=== PATIENT | female | born 1940 | race Caucasian/White ===

== ENCOUNTER 2022-01-17 06:22 | Inpatient (IN) ==
[2022-01-17] MEDS ORDERED: 0.9 % SODIUM CHLORIDE 1,000 ML IV ONE ×2 (06:35→08:00)
[2022-01-17 06:39] LABS: POC Calcium, Ionized 1.17 (1.16-1.32); POC Creatinine 0.8 (0.6-1.2); POC Potassium 3.6 (3.3-5.1)
--- NOTE | 2022-01-17 06:40 | Emergency Department Note ---
Chest Pain HPI General Chief Complaint: Chest Pain Stated Complaint: chest pain Time Seen by Provider: 01/17/22 06:31 Source: patient Mode of arrival: ambulatory Limitations: no limitations History of Present Illness HPI Narrative: Narrative: Patient presents ED with complaints of chest heaviness since about 3 AM this morning. She rates it 5/10 on discomfort scale. Patient reports that she has been having some diarrhea over the past 2 days and has also had some nausea. She states she just does not feel well. She also complains of hives. She reports history of A. fib for which she takes metoprolol and she took it this morning. Today that her blood pressure normally runs low. She denies fever, vomiting, hematemesis, melena, medic easier, hemoptysis, cough, sputum production, recent falls. Patient denies any other alleviating or aggravating factors. Related Data Home Medications Medication Instructions Recorded Confirmed calcium carbonate 500 mg calcium 1,500 mg PO QDAY 09/05/14 12/26/21 (1,250 mg) tablet multivitamin 1 tab PO QDAY 09/05/14 12/26/21 Previous Rx's Medication Instructions Recorded potassium chloride 10 mEq 10 meq PO QDAY PRN edema #90 tabs 12/04/15 tablet,extended release furosemide 20 mg tablet 20 mg PO QDAY PRN edema #90 tabs 07/07/18 denosumab 60 mg/mL subcutaneous 60 mg subcut [id number] #1 mL 01/10/21 syringe (Prolia) warfarin 7.5 mg tablet 7.5 mg PO .COMPLEX #135 tabs 04/26/21 metoprolol succinate 25 mg 50 mg PO QDAY #1 tab 07/18/21 tablet,extended release 24 hr methocarbamol 750 mg tablet 750 mg PO Q8H #30 tabs 09/16/21 tramadol 50 mg tablet 50 mg PO BID PRN low back pain #14 10/16/21 tabs cetirizine 10 mg tablet 20 mg PO BID #120 tabs 11/26/21 omeprazole 20 mg capsule,delayed 20 mg PO QAM #90 caps 12/18/21 release Allergies Allergy/AdvReac Type Severity Reaction Status Date / Time iodixanol [From Visipaque] Allergy Intermediate Swelling Verified 12/26/21 12:17 of Lip/Tongue/Throat morphine Allergy Intermediate Rash Verified 12/26/21 12:17 nitrofurantoin Allergy Intermediate Does not Verified 12/26/21 12:17 recall - she thinks either rash or itching Sulfa (Sulfonamide Allergy Intermediate Rash/itchin Verified 12/26/21 12:17 Antibiotics) g codeine Allergy Mild Itching Verified 12/26/21 12:17 Amoxicillin Allergy Rash Verified 12/26/21 12:17 hydrocodone AdvReac Intermediate Rash Verified 12/26/21 12:17 vitamin K Allergy Severe Unable to Uncoded 11/26/21 11:21 breath- "seized breathing" IV dye, iodine containing Allergy Intermediate Rash Uncoded 11/26/21 11:21 contrast media Barocca C Allergy Unknown Uncoded 11/26/21 11:21 Review of Systems ROS ROS Narrative: Narrative: All systems ED: reviewed and negative except as stated. [facility] Narrative Patient History Narrative: Narrative: Medical/Surgical/Family History All Active Problems (Updated 01/17/22 @ 06:49 by Terrell Maldonado DO) Urticaria (Acute) Essential hypertension (Acute) Non-scarring hair loss (Acute) Low back pain (Acute) RBBB (Acute) Dysphagia (Acute) At risk for pill esophagitis (Acute) Skin lesion of chest wall (Acute) Sinusitis (Acute) Sorethroat (Acute) Benign head tremor (Chronic) Numbness (Acute) Seborrheic keratoses, inflamed (Acute) Heart failure with reduced ejection fraction (Acute) Medicare annual wellness visit, subsequent (Acute) Impingement syndrome of left shoulder (Acute) Low back sprain (Acute) Itching due to drug (Acute) Fall (Acute) Fracture of rib of left side (Acute) Benign paroxysmal positional vertigo (Acute) Milial cyst (Acute) Neoplasm of uncertain behavior (Acute) At risk for falls (Chronic) Chest wall pain (Acute) Cardiomyopathy (Chronic) Bile salt-induced diarrhea (Chronic) PVD (peripheral vascular disease) (Chronic) Skin lesions (Chronic) Diverticulosis of intestine (Chronic) Injury of Foot (Acute) Urticaria (Chronic) Epigastric hernia (Chronic) Osteoarthritis (Chronic) Pain in female pelvis (Chronic) Greater trochanteric bursitis of both hips (Chronic) Stress incontinence, female (Chronic) 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) Shoulder pain (Chronic) Seborrheic keratosis (Chronic) Rhinitis (Chronic 12/14/13) Reactive airway disease (Chronic 06/22/14) Pseudophakia (Chronic) Palpitations (Chronic 01/09/12) Osteoporosis (Chronic) Microscopic hematuria (Chronic 11/22/11) Lumbar disc disease (Chronic) Left bundle branch block (Chronic) Orthostatic hypotension (Chronic 07/08/11) Hyperlipemia (Chronic) Hypercalcemia (Chronic 04/09/12) Gastroesophageal reflux (Chronic) Endothelial corneal dystrophy (Chronic) Edema (Chronic 09/24/11) Dermatochalasis (Chronic) Cystocele (Chronic 07/02/11) Limb cramps (Chronic 08/14/12) Chest pain (Chronic 01/10/12) Bronchitis (Chronic 06/22/14) Atrial fibrillation (Chronic) pen[facility]iary current use of anticoagulant therapy (Chronic 01/10/12) Anemia (Chronic 01/09/12) Adverse reaction to vitamin K (Chronic 01/10/12) Achilles bursitis (Chronic 11/06/12) Abdominal pain (Chronic 09/16/11) Neck nodule (Chronic 11/12/13) Medical History Abdominal pain (09/16/11) Achilles bursitis (11/06/12) Adverse reaction to vitamin K (01/10/12) Anemia (01/09/12) H/O. Remote. At risk for falls Atrial fibrillation Bronchitis (06/22/14) Chest pain (01/10/12) Colitis, ischemic (03/30/12) H/O Cystocele (07/02/11) Dermatochalasis (06/28/14-Sarah) Edema (09/24/11) distal lower extremities. Mild. Endothelial corneal dystrophy (06/28/14-Sarah) Gastroesophageal reflux Hypercalcemia (04/09/12) Hyperlipemia Left bundle branch block Limb cramps (08/14/12) Quinine was very helpful for her, and she would like to continue taking it, which we cannot do. penitentiary current use of anticoagulant therapy (01/10/12) Warfarin for A. 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 Was on Forteo for couple of years prior to that. Left femoral neck T score -3.5 in 2020 Palpitations (01/09/12) Pseudophakia (06/28/14-[facility]) Reactive airway disease (06/22/14) Rhinitis (12/14/13) Sebaceous cyst (06/28/14-Sarah) Seborrheic keratosis (06/28/14-Sarah) Shoulder pain Sinusitis Sorethroat Spasm of esophagus (07/08/11) Stress incontinence, female Urinary tract infection Vaginal bleeding (01/07/12) Surgical History History of cataract surgery bilateral History of cholecystectomy (12/30/13) [facility] History of colonoscopy 04/11-[place]. 2012 showed diverticula and ischemic colitis. 07/17/16 diverticulosis. History of esophagogastroduodenoscopy 12/09 non-ulcerative dyspepsia History of hysterectomy total abdominal and unilateral oophorectomy History of incisional hernia repair 12/13/2015 with mesh History of tonsillectomy History of vaginal surgery 12/12 Vaginal repair Status post cystourethroscopy with dilation of urethral stricture 12-02-11 Procedure done in office by Dr. Ray with negative findings Family History Sister Malignant neoplasm of brain Malignant neoplasm of lung Daughter Malignant neoplasm of larynx Father Malignant neoplasm of lung Brother Lymphoma Social History Smoking Status: Former smoker Alcohol Intake Frequency: 0-2 drinks per day Exam Narrative Narrative: Narrative: General Limitations: no limitations General appearance: Present alert Head Head: Present atraumatic and normocephalic ENT ENT: Present normal oropharynx and mucous membranes moist Neck Neck: Present normal inspection; Absent meningismus Chest Chest: Present normal inspection; Absent tenderness Respiratory Respiratory: Absent respiratory distress Cardiovascular Cardiovascular: Present tachycardia and irregular rhythm Adbominal Abdominal: Present soft; Absent tenderness Extremities Extremities: Present normal capillary refill Neurological Neurological: Present oriented X3 and normal gait Psychiatric Psychiatric: Present normal affect and normal mood Skin Skin: Present warm (WNL) and intact Course Course Course Narrative: Patient was evaluated for chest pressure. EKG was obtained and showed A. fib. Labs have been ordered to include troponin, BNP. Patient is hypotensive with systolic blood pressure less than 85. Patient given some IV fluids. COVID and flu are pending. Chest x-ray has been ordered and is pending. Case will be signed out to Dr. Ryan at [address] Ryan will determine disposition once all results have returned. Vital Signs Vital signs: Vital Signs Temperature 98.1 F 01/17/22 06:22 Pulse Rate 121 H 01/17/22 06:22 Respiratory Rate 16 01/17/22 06:22 Pulse Oximetry (%) 96 01/17/22 06:22 Oxygen Delivery Method 01/17/22 06:22 Temperature 98.1 F 01/17/22 06:22 Pulse Rate 99 H 01/17/22 06:40 Respiratory Rate 20 01/17/22 06:40 Blood Pressure 84/66 01/17/22 06:40 Pulse Oximetry (%) 92 01/17/22 06:40 Oxygen Delivery Method 01/17/22 06:22 MDM MDM Narrative Medical decision making narrative: Narrative: Differential Diagnosis Differential Diagnosis: [place], viral illness, atypical chest pain, hypotension Medical Records Medical records reviewed: Yes I reviewed the patient's medical records. Lab Data Lab results reviewed: Yes I reviewed the patient's lab results. Result diagrams: 01/17/22 06:45 Labs: Lab Results 01/17/22 01/17/22 01/17/22 Range/Units 06:32 06:34 06:45 POC Hct 51.0 H (36-48) POC PT 27.3 H (11.9-14.5) POC INR 2.4 H (0.8-1.2) POC Sodium 140 (133-145) POC Potassium 3.6 (3.3-5.1) POC Chloride 102 (96-108) POC Total CO2 26.0 (22-30) POC BUN 12 (6-20) POC Creatinine 0.8 (0.6-1.2) POC Glucose 161 H (70-105) POC WB Ioniz Calcium 1.17 (1.16-1.32) POC Troponin I < 0.02 (0.00-0.08) EKG Data EKG #1: EKG attestation: Yes I reviewed and interpreted this EKG. Rate: tachycardia (123) Rhythm: A.Fib [place]/QRS: LBBB Heart block present: None ST segment elevation in: None ST segment depression in: None QTc: normal QRS morphology: Present normal Interpretation: no acute changes Core Measures AMI Core Measures Followed: Yes Discharge Plan Patient/Caregiver Discharge Instructions Pt seen by COUNCIL MEMBER/PA only: No Clinical Impression: Chest pain Patient Disposition: Still a Patient Condition: Undetermined Follow up with: Howie Newman DO [Primary Care Provider] - Prescriptions: No Action furosemide 20 mg tablet 20 mg PO QDAY PRN (Reason: edema) Qty: 90 0RF Prolia 60 mg/mL syringe 60 mg subcut [id number] Qty: 1 0RF tramadol 50 mg tablet 50 mg PO BID PRN (Reason: low back pain) Qty: 14 0RF cetirizine 10 mg tablet 20 mg PO BID Qty: 120 0RF omeprazole 20 mg capsule,delayed release(DR/EC) 20 mg PO QAM Qty: 90 1RF multivitamin tablet 1 tab PO QDAY calcium carbonate 500 mg calcium (1,250 mg) tablet 1,500 mg PO QDAY potassium chloride 10 mEq tablet extended release 10 meq PO QDAY PRN (Reason: edema) Qty: 90 0RF warfarin 7.5 mg tablet 7.5 mg PO .COMPLEX Qty: 135 3RF Protocol: Dose Management Condition: Friday Dose/Route: 7.5 mg Instruction: 1 x 7.5 mg tablet Condition: Friday Dose/Route: 7.5 mg Instruction: 1 x 7.5 mg tablet Condition: Friday Dose/Route: 7.5 mg Instruction: 1 x 7.5 mg tablet Condition: Friday Dose/Route: 7.5 mg Instruction: 1 x 7.5 mg tablet Condition: Dose/Route: 7.5 mg Instruction: 1 x 7.5 mg tablet Condition: Friday Dose/Route: 7.5 mg Instruction: 1 x 7.5 mg tablet Condition: Friday Dose/Route: 3.75 mg Instruction: 0.5 x 7.5 mg tablets Protocol Text: Adjustment Start Date: Friday12/04/21 INR Value: 2.0 INR Date: 12/04/21 Recheck Date: 12/11/21 Rx Instructions: 7.5 mg PO 6 days/week, 3.75mg (0.5 tablet) on Friday metoprolol succinate 25 mg tablet extended release 24 hr 50 mg PO QDAY Qty: 1 0RF methocarbamol 750 mg tablet 750 mg PO Q8H Qty: 30 0RF
[2022-01-17 06:48] LABS: POC INR 2.4 (0.8-1.2); POC Pro Time 27.3 (11.9-14.5)
[2022-01-17 07:28] LABS: Basophils # (Auto) 0.02 K/mcL (0.00-0.30); Basophils % (Auto) 0.1 % (0.0-2.0); Eosinophils # (Auto) 0.06 K/mcL (0.00-0.70); Eosinophils % (Auto) 0.4 % (0.0-7.0); Hematocrit 49.5 % (34.1-44.9); Hemoglobin 15.8 g/dL (11.2-15.7); Lymphocytes # (Auto) 1.47 K/mcL (1.50-4.80); Lymphocytes % (Auto) 9.1 % (15.5-49.0); Mean Cell Volume 88.6 fL (80.0-100.0); Mean Corpuscular HGB Conc 31.9 g/dL (31.0-36.0); Mean Platelet Volume 11.8 fL (8.8-12.5); Monocytes # (Auto) 1.11 K/mcL (0.10-0.90); Monocytes % (Auto) 6.9 % (1.0-12.0); Neutrophils % (Auto) 82.9 % (38.0-78.0); Platelet Count 174 K/mcL (140-440); RBC 5.59 M/mcL (3.59-5.38); Red Cell Distribution Width 13.4 % (11.5-14.5); WBC 16.2 K/mcL (4.5-11.0)
[2022-01-17] MEDS ORDERED: CEFEPIME 1 GM VIAL IV ONE (08:01)
[2022-01-17] MEDS ORDERED: AZITHROMYCIN 500 MG in DEXTROSE 5% IN WATER 250 ML IV ONE (08:01)
[2022-01-17] MEDS ORDERED: ACETAMINOPHEN 325 MG TABLET PO ONE (08:13)
--- NOTE | 2022-01-17 09:40 | Emergency Department Note ---
HPI General Chief complaint: Chest Pain Stated complaint: chest pain Time Seen by Provider: 01/17/22 06:31 Source: patient Mode of arrival: ambulatory Limitations: no limitations History of Present Illness HPI Narrative: Narrative: Related Data Home Medications Medication Instructions Recorded Confirmed calcium carbonate 500 mg calcium 1,500 mg PO QDAY 09/05/14 12/26/21 (1,250 mg) tablet multivitamin 1 tab PO QDAY 09/05/14 12/26/21 Previous Rx's Medication Instructions Recorded potassium chloride 10 mEq 10 meq PO QDAY PRN edema #90 tabs 12/04/15 tablet,extended release furosemide 20 mg tablet 20 mg PO QDAY PRN edema #90 tabs 07/07/18 denosumab 60 mg/mL subcutaneous 60 mg subcut [id number] #1 mL 01/10/21 syringe (Prolia) warfarin 7.5 mg tablet 7.5 mg PO .COMPLEX #135 tabs 04/26/21 metoprolol succinate 25 mg 50 mg PO QDAY #1 tab 07/18/21 tablet,extended release 24 hr methocarbamol 750 mg tablet 750 mg PO Q8H #30 tabs 09/16/21 tramadol 50 mg tablet 50 mg PO BID PRN low back pain #14 10/16/21 tabs cetirizine 10 mg tablet 20 mg PO BID #120 tabs 11/26/21 omeprazole 20 mg capsule,delayed 20 mg PO QAM #90 caps 12/18/21 release Allergies Allergy/AdvReac Type Severity Reaction Status Date / Time iodixanol [From Visipaque] Allergy Intermediate Swelling Verified 12/26/21 12:17 of Lip/Tongue/Throat morphine Allergy Intermediate Rash Verified 12/26/21 12:17 nitrofurantoin Allergy Intermediate Does not Verified 12/26/21 12:17 recall - she thinks either rash or itching Sulfa (Sulfonamide Allergy Intermediate Rash/itchin Verified 12/26/21 12:17 Antibiotics) g codeine Allergy Mild Itching Verified 12/26/21 12:17 Amoxicillin Allergy Rash Verified 12/26/21 12:17 hydrocodone AdvReac Intermediate Rash Verified 12/26/21 12:17 vitamin K Allergy Severe Unable to Uncoded 11/26/21 11:21 breath- "seized breathing" IV dye, iodine containing Allergy Intermediate Rash Uncoded 11/26/21 11:21 contrast media Barocca C Allergy Unknown Uncoded 11/26/21 11:21 Review of Systems ROS ROS Narrative: Narrative: PFSH Narrative Patient History Narrative: Narrative: Medical/Surgical/Family History All Active Problems (Updated 01/17/22 @ 09:40 by Prashanth Ryan DO) CAP (community acquired pneumonia) (Acute) Sepsis (Acute) Urticaria (Acute) Essential hypertension (Acute) Non-scarring hair loss (Acute) Low back pain (Acute) RBBB (Acute) Dysphagia (Acute) At risk for pill esophagitis (Acute) Skin lesion of chest wall (Acute) Sinusitis (Acute) Sorethroat (Acute) Benign head tremor (Chronic) Numbness (Acute) Seborrheic keratoses, inflamed (Acute) Heart failure with reduced ejection fraction (Acute) Medicare annual wellness visit, subsequent (Acute) Impingement syndrome of left shoulder (Acute) Low back sprain (Acute) Itching due to drug (Acute) Fall (Acute) Fracture of rib of left side (Acute) Benign paroxysmal positional vertigo (Acute) Milial cyst (Acute) Neoplasm of uncertain behavior (Acute) At risk for falls (Chronic) Chest wall pain (Acute) Cardiomyopathy (Chronic) Bile salt-induced diarrhea (Chronic) PVD (peripheral vascular disease) (Chronic) Skin lesions (Chronic) Diverticulosis of intestine (Chronic) Injury of Foot (Acute) Urticaria (Chronic) Epigastric hernia (Chronic) Osteoarthritis (Chronic) Pain in female pelvis (Chronic) Greater trochanteric bursitis of both hips (Chronic) Stress incontinence, female (Chronic) 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) Shoulder pain (Chronic) Seborrheic keratosis (Chronic) Rhinitis (Chronic 12/14/13) Reactive airway disease (Chronic 06/22/14) Pseudophakia (Chronic) Palpitations (Chronic 01/09/12) Osteoporosis (Chronic) Microscopic hematuria (Chronic 11/22/11) Lumbar disc disease (Chronic) Left bundle branch block (Chronic) Orthostatic hypotension (Chronic 07/08/11) Hyperlipemia (Chronic) Hypercalcemia (Chronic 04/09/12) Gastroesophageal reflux (Chronic) Endothelial corneal dystrophy (Chronic) Edema (Chronic 09/24/11) Dermatochalasis (Chronic) Cystocele (Chronic 07/02/11) Limb cramps (Chronic 08/14/12) Chest pain (Chronic 01/10/12) Bronchitis (Chronic 06/22/14) Atrial fibrillation (Chronic) care home current use of anticoagulant therapy (Chronic 01/10/12) Anemia (Chronic 01/09/12) Adverse reaction to vitamin K (Chronic 01/10/12) Achilles bursitis (Chronic 11/06/12) Abdominal pain (Chronic 09/16/11) Neck nodule (Chronic 11/12/13) Medical History Abdominal pain (09/16/11) Achilles bursitis (11/06/12) Adverse reaction to vitamin K (01/10/12) Anemia (01/09/12) H/O. Remote. At risk for falls Atrial fibrillation Bronchitis (06/22/14) Chest pain (01/10/12) Colitis, ischemic (03/30/12) H/O Cystocele (07/02/11) Dermatochalasis (06/28/14-[place]) Edema (09/24/11) distal lower extremities. Mild. Endothelial corneal dystrophy (06/28/14-Sarah) Gastroesophageal reflux Hypercalcemia (04/09/12) Hyperlipemia Left bundle branch block Limb cramps (08/14/12) Quinine was very helpful for her, and she would like to continue taking it, which we cannot do. 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 Was on Forteo for couple of years prior to that. Left femoral neck T score -3.5 in 2020 Palpitations (01/09/12) Pseudophakia (06/28/14-Sarah) Reactive airway disease (06/22/14) Rhinitis (12/14/13) Sebaceous cyst (06/28/14-Sarah) Seborrheic keratosis (06/28/14-Sarah) Shoulder pain Sinusitis Sorethroat Spasm of esophagus (07/08/11) Stress incontinence, female Urinary tract infection Vaginal bleeding (01/07/12) Surgical History History of cataract surgery bilateral History of cholecystectomy (12/30/13) [facility] History of colonoscopy 04/11-[place]. 2012 showed diverticula and ischemic colitis. 07/17/16 diverticulosis. History of esophagogastroduodenoscopy 12/09 non-ulcerative dyspepsia History of hysterectomy total abdominal and unilateral oophorectomy History of incisional hernia repair 12/13/2015 with mesh History of tonsillectomy History of vaginal surgery 12/12 Vaginal repair Status post cystourethroscopy with dilation of urethral stricture 12-02-11 Procedure done in office by Dr. Ray with negative findings Family History Sister Malignant neoplasm of brain Malignant neoplasm of lung Daughter Malignant neoplasm of larynx Father Malignant neoplasm of lung Brother Lymphoma Social History Smoking Status: Former smoker Alcohol Intake Frequency: 0-2 drinks per day Exam Narrative Narrative: Narrative: General Limitations: no limitations Course Vital Signs Vital signs: Vital Signs Temperature 98.1 F 01/17/22 06:22 Pulse Rate 121 H 01/17/22 06:22 Respiratory Rate 16 01/17/22 06:22 Pulse Oximetry (%) 96 01/17/22 06:22 Oxygen Delivery Method 01/17/22 06:22 Temperature 98.1 F 01/17/22 06:22 Pulse Rate 51 L 01/17/22 08:04 Respiratory Rate 22 01/17/22 08:04 Blood Pressure 91/66 01/17/22 08:04 Pulse Oximetry (%) 91 01/17/22 08:04 Oxygen Delivery Method 01/17/22 06:22 MDM MDM Narrative Medical decision making narrative: Narrative: Patient signed out to me pending reevaluation and lab analysis. Looking further patient actually had a white blood cell count of 16 with a left shift as well as a mildly elevated BNP of 3000. She had her INR which was stable based on her Coumadin. She ended up still being little hypotensive so end of giving her another liter of IV fluids that did seem to help as well as Tylenol. X-ray interpreted myself shows possible pneumonia I went ahead and added procalcitonin. Due to this I think patient may just have a little bit of sepsis is does not severe sepsis her lactate was normal and she is not in septic shock. She did seem to respond well to the IV fluids and is no longer hypotensive. She was started on cefepime and azithromycin for community-acquired pneumonia. I did speak with the hospitalist Dr. Burgos who has agreed to admit the patient. Patient will be admitted in stable condition. Did at request for me to add on a urinalysis as well as sputum culture which were added and he will follow-up these results. Admitted in fair condition. Lab Data Result diagrams: 01/17/22 06:45 Labs: Lab Results 01/17/22 01/17/22 01/17/22 Range/Units 06:32 06:34 06:45 WBC 16.2 H (4.5-11.0) K/mcL RBC 5.59 H (3.59-5.38) M/mcL Hgb 15.8 H (11.2-15.7) g/dL Hct 49.5 H (34.1-44.9) % POC Hct 51.0 H (36-48) MCV 88.6 (80.0-100.0) fL MCH 28.3 (26.0-34.0) pg MCHC 31.9 (31.0-36.0) g/dL RDW 13.4 (11.5-14.5) % Plt Count 174 (140-440) K/mcL MPV 11.8 (8.8-12.5) fL Immature Gran % (Auto) 0.6 H (0.0-0.5) % Neut % (Auto) 82.9 H (38.0-78.0) % Lymph % (Auto) 9.1 L (15.5-49.0) % [place] % (Auto) 6.9 (1.0-12.0) % Eos % (Auto) 0.4 (0.0-7.0) % Baso % (Auto) 0.1 (0.0-2.0) % Lymph # (Auto) 1.47 L (1.50-4.80) K/mcL [place] # (Auto) 1.11 H (0.10-0.90) K/mcL Eos # (Auto) 0.06 (0.00-0.70) K/mcL Baso # (Auto) 0.02 (0.00-0.30) K/mcL Immature Gran # 0.09 H (0.00-0.05) K/mcl Absolute Neutrophils 13.45 H (1.80-8.00) K/mcL POC PT (11.9-14.5) POC INR (0.8-1.2) POC VBG pH (7.32-7.42) POC VBG pCO2 at Temp (41-51) POC VBG pO2 (25-40) POC VBG HCO3 (24-28) POC VBG Total CO2 (25-29) POC Venous O2 Sat (40-70) POC VBG Base Excess (-2-2) VBG Lactic Acid (0.5-2) POC Sodium 140 (133-145) POC Potassium 3.6 (3.3-5.1) POC Chloride 102 (96-108) POC Total CO2 26.0 (22-30) POC BUN 12 (6-20) POC Creatinine 0.8 (0.6-1.2) POC Glucose 161 H (70-105) POC WB Ioniz Calcium 1.17 (1.16-1.32) NT-Pro-B Natriuret Pep (<450.0) pg/mL Procalcitonin (<0.10) ng/mL POC Troponin I < 0.02 (0.00-0.08) 01/17/22 01/17/22 01/17/22 Range/Units 06:45 06:45 08:11 WBC (4.5-11.0) K/mcL RBC (3.59-5.38) M/mcL Hgb (11.2-15.7) g/dL Hct (34.1-44.9) % POC Hct (36-48) MCV (80.0-100.0) fL MCH (26.0-34.0) pg MCHC (31.0-36.0) g/dL RDW (11.5-14.5) % Plt Count (140-440) K/mcL MPV (8.8-12.5) fL Immature Gran % (Auto) (0.0-0.5) % Neut % (Auto) (38.0-78.0) % Lymph % (Auto) (15.5-49.0) % [place] % (Auto) (1.0-12.0) % Eos % (Auto) (0.0-7.0) % Baso % (Auto) (0.0-2.0) % Lymph # (Auto) (1.50-4.80) K/mcL [place] # (Auto) (0.10-0.90) K/mcL Eos # (Auto) (0.00-0.70) K/mcL Baso # (Auto) (0.00-0.30) K/mcL Immature Gran # (0.00-0.05) K/mcl Absolute Neutrophils (1.80-8.00) K/mcL POC PT 27.3 H (11.9-14.5) POC INR 2.4 H (0.8-1.2) POC VBG pH 7.38 (7.32-7.42) POC VBG pCO2 at Temp 42.8 (41-51) POC VBG pO2 49 H (25-40) POC VBG HCO3 25.5 (24-28) POC VBG Total CO2 27.0 (25-29) POC Venous O2 Sat 84.0 H (40-70) POC VBG Base Excess 0 (-2-2) VBG Lactic Acid 1.0 (0.5-2) POC Sodium (133-145) POC Potassium (3.3-5.1) POC Chloride (96-108) POC Total CO2 (22-30) POC BUN (6-20) POC Creatinine (0.6-1.2) POC Glucose (70-105) POC WB Ioniz Calcium (1.16-1.32) NT-Pro-B Natriuret Pep 3358.0 H (<450.0) pg/mL Procalcitonin (<0.10) ng/mL POC Troponin I (0.00-0.08) 01/17/22 Range/Units 08:31 WBC (4.5-11.0) K/mcL RBC (3.59-5.38) M/mcL Hgb (11.2-15.7) g/dL Hct (34.1-44.9) % POC Hct (36-48) MCV (80.0-100.0) fL MCH (26.0-34.0) pg MCHC (31.0-36.0) g/dL RDW (11.5-14.5) % Plt Count (140-440) K/mcL MPV (8.8-12.5) fL Immature Gran % (Auto) (0.0-0.5) % Neut % (Auto) (38.0-78.0) % Lymph % (Auto) (15.5-49.0) % [place] % (Auto) (1.0-12.0) % Eos % (Auto) (0.0-7.0) % Baso % (Auto) (0.0-2.0) % Lymph # (Auto) (1.50-4.80) K/mcL [place] # (Auto) (0.10-0.90) K/mcL Eos # (Auto) (0.00-0.70) K/mcL Baso # (Auto) (0.00-0.30) K/mcL Immature Gran # (0.00-0.05) K/mcl Absolute Neutrophils (1.80-8.00) K/mcL POC PT (11.9-14.5) POC INR (0.8-1.2) POC VBG pH (7.32-7.42) POC VBG pCO2 at Temp (41-51) POC VBG pO2 (25-40) POC VBG HCO3 (24-28) POC VBG Total CO2 (25-29) POC Venous O2 Sat (40-70) POC VBG Base Excess (-2-2) VBG Lactic Acid (0.5-2) POC Sodium (133-145) POC Potassium (3.3-5.1) POC Chloride (96-108) POC Total CO2 (22-30) POC BUN (6-20) POC Creatinine (0.6-1.2) POC Glucose (70-105) POC WB Ioniz Calcium (1.16-1.32) NT-Pro-B Natriuret Pep (<450.0) pg/mL Procalcitonin 0.07 (<0.10) ng/mL POC Troponin I (0.00-0.08) ED POC Tests ED POC Tests: CLAY - Influenza A Negative CLAY - Influenza B Negative CLAY - SARS Antigen Negative Discharge Plan Patient/Caregiver Discharge Instructions Pt seen by [facility]/PA only: No Clinical Impression: Chest pain, CAP (community acquired pneumonia), Sepsis Patient Disposition: Xfer As Outpt/Obs ([facility]) Condition: Fair Follow up with: Howie Newman DO [Primary Care Provider] - Prescriptions: No Action furosemide 20 mg tablet 20 mg PO QDAY PRN (Reason: edema) Qty: 90 0RF Prolia 60 mg/mL syringe 60 mg subcut [id number] Qty: 1 0RF tramadol 50 mg tablet 50 mg PO BID PRN (Reason: low back pain) Qty: 14 0RF cetirizine 10 mg tablet 20 mg PO BID Qty: 120 0RF omeprazole 20 mg capsule,delayed release(DR/EC) 20 mg PO QAM Qty: 90 1RF multivitamin tablet 1 tab PO QDAY calcium carbonate 500 mg calcium (1,250 mg) tablet 1,500 mg PO QDAY potassium chloride 10 mEq tablet extended release 10 meq PO QDAY PRN (Reason: edema) Qty: 90 0RF warfarin 7.5 mg tablet 7.5 mg PO .COMPLEX Qty: 135 3RF Protocol: Dose Management Condition: Friday Dose/Route: 7.5 mg Instruction: 1 x 7.5 mg tablet Condition: Friday Dose/Route: 7.5 mg Instruction: 1 x 7.5 mg tablet Condition: Friday Dose/Route: 7.5 mg Instruction: 1 x 7.5 mg tablet Condition: Friday Dose/Route: 7.5 mg Instruction: 1 x 7.5 mg tablet Condition: Dose/Route: 7.5 mg Instruction: 1 x 7.5 mg tablet Condition: Friday Dose/Route: 7.5 mg Instruction: 1 x 7.5 mg tablet Condition: Friday Dose/Route: 3.75 mg Instruction: 0.5 x 7.5 mg tablets Protocol Text: Adjustment Start Date: Friday12/04/21 INR Value: 2.0 INR Date: 12/04/21 Recheck Date: 12/11/21 Rx Instructions: 7.5 mg PO 6 days/week, 3.75mg (0.5 tablet) on Friday metoprolol succinate 25 mg tablet extended release 24 hr 50 mg PO QDAY Qty: 1 0RF methocarbamol 750 mg tablet 750 mg PO Q8H Qty: 30 0RF
--- NOTE | 2022-01-17 09:46 | XRay Report ---
CLINICAL INFORMATION: Chest pain COMPARISON: 12/11/2015 TECHNIQUE: Portable FINDINGS: The heart is moderately enlarged-increase from previous study. Tortuous thoracic aorta again noted. The remaining mediastinum and pulmonary vasculature are normal. Lung volumes are elevated and there is mild wall thickening of the bronchi compatible with chronic bronchitis-as previously seen. Minor bibasilar airspace disease is likely fibrosis and/or atelectasis. No effusion. IMPRESSION: Moderate cardiomegaly, but no CHF or other acute process. Underlying chronic bronchitis Interpreted and Authenticated by: Howie Gaona 01/17/22
--- NOTE | 2022-01-17 11:47 | Internal Med History&Physical ---
HPI History of Present Illness Patient information: Note initiated : 01/17/22 at 11:39 am Service Date, if different from initiated Date: [] Patient: Cheryl Robison 81 y/o F admitted on for chest pain. Chief Complaint: [] History of present illness: Ms. Robison is a 81 year old female with a history of atrial fibrillation on Coumadin, GERD, osteoporosis, multiple allergies who presented to the ED for a diffuse pruritic rash and chest discomfort. In the emergency department the patient was found to have leukocytosis however was afebrile. Her blood pressure was low however the patient was asymptomatic from hypotension. She says that h er blood pressure usually runs low and she also takes rate controlling agents for atrial fibrillation. Work-up in the ED included a chest x-ray which did not show any infiltrates suggestive of pneumonia. There was cardiomegaly noted on the chest x-ray but no pulmonary vascular congestion. The patient had an EKG which showed a chronic left bundle branch block, troponin was normal. NT proBNP was notably elevated. The patient was given IV fluid, antibiotics for possible pneumonia, and hospital medicine was consulted for admission. The patient says that her symptoms began yesterday evening and consist of a diffuse rash, chest discomfort, crampy abdominal discomfort and diarrhea. The patient says she does have chronic diarrhea at baseline. Upon examination, the most prominent finding on examination is a diffuse pruritic rash which the patient says began yesterday. Patient says that she is experienced 3 prior episodes of the same kind of rash which are unexplained so far. The patient denies recent medication changes except for medication that starts with a "c" which she does not remember, she thinks she takes it for diarrhea. The patient is hypotensive with systolic blood pressures in the 70s however appears to be asymptomatic. She says her systolic blood pressure usually runs low in the 90s. The patient has a urinalysis pending, blood cultures pending, she also has a Lazaro catheter in the emergency department. Review of systems Constitutional: Positive for chills, denies fevers Eyes: no vision changes or pain Cardiovascular: Positive for chest discomfort Respiratory: Positive for mild cough Gastrointestinal: Positive for crampy abdominal pain, chronic diarrhea Genitourinary: no dysuria or difficulty voiding Musculoskeletal: no arthralgia or myalgia Integumentary: Positive for diffuse pruritic rash Neurological: no focal weakness or numbness Psychiatric: no anxiety or depression Physical exam Head: Atraumatic, normal inspection. Eyes: normal appearance, no scleral icterus. Neck: full ROM Respiratory: no respiratory distress. Cardiovascular: normal rate and rhythm, S1, S2. GI/Abdominal: soft, nontender, no guarding. Extremities: full range of motion, nontender. Neurological: CN II-XII intact, intact motor, intact sensation. Psychiatric: normal mood. Skin: Diffuse rash PFSH PFSH All Active Problems (Updated 01/17/22 @ 09:40 by Prashanth Ryan DO) CAP (community acquired pneumonia) (Acute) Sepsis (Acute) Urticaria (Acute) Essential hypertension (Acute) Non-scarring hair loss (Acute) Low back pain (Acute) RBBB (Acute) Dysphagia (Acute) At risk for pill esophagitis (Acute) Skin lesion of chest wall (Acute) Sinusitis (Acute) Sorethroat (Acute) Benign head tremor (Chronic) Numbness (Acute) Seborrheic keratoses, inflamed (Acute) Heart failure with reduced ejection fraction (Acute) Medicare annual wellness visit, subsequent (Acute) Impingement syndrome of left shoulder (Acute) Low back sprain (Acute) Itching due to drug (Acute) Fall (Acute) Fracture of rib of left side (Acute) Benign paroxysmal positional vertigo (Acute) Milial cyst (Acute) Neoplasm of uncertain behavior (Acute) At risk for falls (Chronic) Chest wall pain (Acute) Cardiomyopathy (Chronic) Bile salt-induced diarrhea (Chronic) PVD (peripheral vascular disease) (Chronic) Skin lesions (Chronic) Diverticulosis of intestine (Chronic) Injury of Foot (Acute) Urticaria (Chronic) Epigastric hernia (Chronic) Osteoarthritis (Chronic) Pain in female pelvis (Chronic) Greater trochanteric bursitis of both hips (Chronic) Stress incontinence, female (Chronic) 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) Shoulder pain (Chronic) Seborrheic keratosis (Chronic) Rhinitis (Chronic 12/14/13) Reactive airway disease (Chronic 06/22/14) Pseudophakia (Chronic) Palpitations (Chronic 01/09/12) Osteoporosis (Chronic) Microscopic hematuria (Chronic 11/22/11) Lumbar disc disease (Chronic) Left bundle branch block (Chronic) Orthostatic hypotension (Chronic 07/08/11) Hyperlipemia (Chronic) Hypercalcemia (Chronic 04/09/12) Gastroesophageal reflux (Chronic) Endothelial corneal dystrophy (Chronic) Edema (Chronic 09/24/11) Dermatochalasis (Chronic) Cystocele (Chronic 07/02/11) Limb cramps (Chronic 08/14/12) Chest pain (Chronic 01/10/12) Bronchitis (Chronic 06/22/14) Atrial fibrillation (Chronic) [employer] current use of anticoagulant therapy (Chronic 01/10/12) Anemia (Chronic 01/09/12) Adverse reaction to vitamin K (Chronic 01/10/12) Achilles bursitis (Chronic 11/06/12) Abdominal pain (Chronic 09/16/11) Neck nodule (Chronic 11/12/13) Medical History Abdominal pain (09/16/11) Achilles bursitis (11/06/12) Adverse reaction to vitamin K (01/10/12) Anemia (01/09/12) H/O. Remote. At risk for falls Atrial fibrillation Bronchitis (06/22/14) Chest pain (01/10/12) Colitis, ischemic (03/30/12) H/O Cystocele (07/02/11) Dermatochalasis (06/28/14-Sarah) Edema (09/24/11) distal lower extremities. Mild. Endothelial corneal dystrophy (06/28/14-Sarah) Gastroesophageal reflux Hypercalcemia (04/09/12) Hyperlipemia Left bundle branch block Limb cramps (08/14/12) Quinine was very helpful for her, and she would like to continue taking it, which we cannot do. 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 Was on Forteo for couple of years prior to that. Left femoral neck T score -3.5 in 2020 Palpitations (01/09/12) Pseudophakia (06/28/14-Sarah) Reactive airway disease (06/22/14) Rhinitis (12/14/13) Sebaceous cyst (06/28/14-Sarah) Seborrheic keratosis (06/28/14-Sarah) Shoulder pain Sinusitis Sorethroat Spasm of esophagus (07/08/11) Stress incontinence, female Urinary tract infection Vaginal bleeding (01/07/12) Surgical History History of cataract surgery bilateral History of cholecystectomy (12/30/13) [facility] History of colonoscopy 04/11-[place]. 2012 showed diverticula and ischemic colitis. 07/17/16 diverticulosis. History of esophagogastroduodenoscopy 12/09 non-ulcerative dyspepsia History of hysterectomy total abdominal and unilateral oophorectomy History of incisional hernia repair 12/13/2015 with mesh History of tonsillectomy History of vaginal surgery 12/12 Vaginal repair Status post cystourethroscopy with dilation of urethral stricture 12-02-11 Procedure done in office by Dr. Ray with negative findings Family History Sister Malignant neoplasm of brain Malignant neoplasm of lung Daughter Malignant neoplasm of larynx Father Malignant neoplasm of lung Brother Lymphoma Social History household members: spouse and significant other housing: house lives independently: Yes marital status: education level: high school occupational status: retired occupation: [place] [employer] other: 4 children smoking status: Former smoker quit date: 03/03/01 alcohol intake frequency: 0-2 drinks per day MEDS/ALLERGIES Home Medications and Allergies Home Medications Medication Instructions Recorded Confirmed Type calcium carbonate 500 mg calcium 1,500 mg PO QDAY 09/05/14 12/26/21 History (1,250 mg) tablet multivitamin 1 tab PO QDAY 09/05/14 12/26/21 History potassium chloride 10 mEq 10 meq PO QDAY PRN edema #90 tabs 12/04/15 12/26/21 Rx tablet,extended release furosemide 20 mg tablet 20 mg PO QDAY PRN edema #90 tabs 07/07/18 12/26/21 Rx denosumab 60 mg/mL subcutaneous 60 mg subcut [id number] #1 mL 01/10/21 12/26/21 Rx syringe (Prolia) warfarin 7.5 mg tablet 7.5 mg PO .COMPLEX #135 tabs 04/26/21 12/26/21 Rx metoprolol succinate 25 mg 50 mg PO QDAY #1 tab 07/18/21 12/26/21 Rx tablet,extended release 24 hr methocarbamol 750 mg tablet 750 mg PO Q8H #30 tabs 09/16/21 12/26/21 Rx tramadol 50 mg tablet 50 mg PO BID PRN low back pain #14 10/16/21 12/26/21 Rx tabs cetirizine 10 mg tablet 20 mg PO BID #120 tabs 11/26/21 12/26/21 Rx omeprazole 20 mg capsule,delayed 20 mg PO QAM #90 caps 12/18/21 12/26/21 Rx release Allergies Allergy/AdvReac Type Severity Reaction Status Date / Time iodixanol [From Visipaque] Allergy Intermediate Swelling Verified 12/26/21 12:17 of Lip/Tongue/Throat morphine Allergy Intermediate Rash Verified 12/26/21 12:17 nitrofurantoin Allergy Intermediate Does not Verified 12/26/21 12:17 recall - she thinks either rash or itching Sulfa (Sulfonamide Allergy Intermediate Rash/itchin Verified 12/26/21 12:17 Antibiotics) g codeine Allergy Mild Itching Verified 12/26/21 12:17 Amoxicillin Allergy Rash Verified 12/26/21 12:17 hydrocodone AdvReac Intermediate Rash Verified 12/26/21 12:17 vitamin K Allergy Severe Unable to Uncoded 11/26/21 11:21 breath- "seized breathing" IV dye, iodine containing Allergy Intermediate Rash Uncoded 11/26/21 11:21 contrast media Barocca C Allergy Unknown Uncoded 11/26/21 11:21 EXAM Constitutional Vitals: Temp Pulse Resp BP Pulse Ox O2 Del Method 98.1 F 99 H 22 103/85 88 L 01/17/22 06:22 01/17/22 08:16 01/17/22 11:31 01/17/22 11:31 01/17/22 08:16 01/17/22 06:22 DATA Data Completed and Pending Labs: Labs from last 24 hours 01/17/22 01/17/22 01/17/22 11:14 08:31 08:11 WBC RBC Hgb Hct POC Hct MCV MCH MCHC RDW Plt Count MPV Immature Gran % (Auto) Neut % (Auto) Lymph % (Auto) Crane % (Auto) Eos % (Auto) Baso % (Auto) Lymph # (Auto) Crane # (Auto) Eos # (Auto) Baso # (Auto) Immature Gran # Absolute Neutrophils ESR POC PT POC INR POC VBG pH 7.38 POC VBG pCO2 at Temp 42.8 POC VBG pO2 49 H POC VBG HCO3 25.5 POC VBG Total CO2 27.0 POC Venous O2 Sat 84.0 H POC VBG Base Excess 0 VBG Lactic Acid 1.0 POC Sodium POC Potassium POC Chloride POC Total CO2 POC BUN POC Creatinine POC Glucose POC WB Ioniz Calcium C-Reactive Protein NT-Pro-B Natriuret Pep Procalcitonin 0.07 Urine Color Pending Urine Appearance Pending Urine pH Pending Ur Specific [place] Pending Urine Protein Pending Urine Glucose (UA) Pending Urine Ketones Pending Urine Occult Blood Pending Urine Nitrate Pending Urine Bilirubin Pending Urine Urobilinogen Pending Ur Leukocyte Esterase Pending POC Troponin I 01/17/22 01/17/22 01/17/22 06:48 06:48 06:45 WBC RBC Hgb Hct POC Hct MCV MCH MCHC RDW Plt Count MPV Immature Gran % (Auto) Neut % (Auto) Lymph % (Auto) Crane % (Auto) Eos % (Auto) Baso % (Auto) Lymph # (Auto) Crane # (Auto) Eos # (Auto) Baso # (Auto) Immature Gran # Absolute Neutrophils ESR Pending POC PT 27.3 H POC INR 2.4 H POC VBG pH POC VBG pCO2 at Temp POC VBG pO2 POC VBG HCO3 POC VBG Total CO2 POC Venous O2 Sat POC VBG Base Excess VBG Lactic Acid POC Sodium POC Potassium POC Chloride POC Total CO2 POC BUN POC Creatinine POC Glucose POC WB Ioniz Calcium C-Reactive Protein Pending NT-Pro-B Natriuret Pep Procalcitonin Urine Color Urine Appearance Urine pH Ur Specific [place] Urine Protein Urine Glucose (UA) Urine Ketones Urine Occult Blood Urine Nitrate Urine Bilirubin Urine Urobilinogen Ur Leukocyte Esterase POC Troponin I 01/17/22 01/17/22 01/17/22 06:45 06:45 06:34 WBC 16.2 H RBC 5.59 H Hgb 15.8 H Hct 49.5 H POC Hct 51.0 H MCV 88.6 MCH 28.3 MCHC 31.9 RDW 13.4 Plt Count 174 MPV 11.8 Immature Gran % (Auto) 0.6 H Neut % (Auto) 82.9 H Lymph % (Auto) 9.1 L Crane % (Auto) 6.9 Eos % (Auto) 0.4 Baso % (Auto) 0.1 Lymph # (Auto) 1.47 L Crane # (Auto) 1.11 H Eos # (Auto) 0.06 Baso # (Auto) 0.02 Immature Gran # 0.09 H Absolute Neutrophils 13.45 H ESR POC PT POC INR POC VBG pH POC VBG pCO2 at Temp POC VBG pO2 POC VBG HCO3 POC VBG Total CO2 POC Venous O2 Sat POC VBG Base Excess VBG Lactic Acid POC Sodium 140 POC Potassium 3.6 POC Chloride 102 POC Total CO2 26.0 POC BUN 12 POC Creatinine 0.8 POC Glucose 161 H POC WB Ioniz Calcium 1.17 C-Reactive Protein NT-Pro-B Natriuret Pep 3358.0 H Procalcitonin Urine Color Urine Appearance Urine pH Ur Specific [place] Urine Protein Urine Glucose (UA) Urine Ketones Urine Occult Blood Urine Nitrate Urine Bilirubin Urine Urobilinogen Ur Leukocyte Esterase POC Troponin I 01/17/22 06:32 WBC RBC Hgb Hct POC Hct MCV MCH MCHC RDW Plt Count MPV Immature Gran % (Auto) Neut % (Auto) Lymph % (Auto) Crane % (Auto) Eos % (Auto) Baso % (Auto) Lymph # (Auto) Crane # (Auto) Eos # (Auto) Baso # (Auto) Immature Gran # Absolute Neutrophils ESR POC PT POC INR POC VBG pH POC VBG pCO2 at Temp POC VBG pO2 POC VBG HCO3 POC VBG Total CO2 POC Venous O2 Sat POC VBG Base Excess VBG Lactic Acid POC Sodium POC Potassium POC Chloride POC Total CO2 POC BUN POC Creatinine POC Glucose POC WB Ioniz Calcium C-Reactive Protein NT-Pro-B Natriuret Pep Procalcitonin Urine Color Urine Appearance Urine pH Ur Specific [place] Urine Protein Urine Glucose (UA) Urine Ketones Urine Occult Blood Urine Nitrate Urine Bilirubin Urine Urobilinogen Ur Leukocyte Esterase POC Troponin I < 0.02 A/P Narrative A/P Narrative: Assessment: 81-year-old female with multiple allergies, atrial fibrillation, GERD, chronic diarrhea admitted for diffuse pruritic rash and chest discomfort. Patient also had a leukocytosis on admission. No evidence of infiltrate on the chest x-ray. EKG showed a chronic LBBB, troponin was normal. NT proBNP was 3358. Procalcitonin level was normal. Lactic acid was normal. At admission, the patient was on Coumadin with a therapeutic INR. #Systemic inflammatory response syndrome #Diffuse pruritic rash of uncertain etiology #Chest discomfort, no evidence of ACS #Atrial fibrillation on Coumadin #GERD #Osteoporosis #Multiple allergies #Chronic left bundle branch block Plan -Received antibiotics and IV fluid in the ED, will hold off on further antibiotics for now. -Transthoracic echocardiogram. -Repeat troponin. -Check CRP, ESR, TSH and random cortisol level. -Urinalysis with reflex to culture. -Follow blood cultures. -Respiratory virus panel. -CT chest without contrast. -Benadryl as needed for urticaria -Coumadin per pharmacy. -Home medication reconciliation. -ekg monitor. -DVT prophylaxis: Coumadin Time Spent With Patient Time: Total time spent is greater than 50% in coordination of care (as documented) at patient's floor/unit and/or counseling patient:
[2022-01-17 12:11] LABS: Appearance,Urine CLEAR (Clear); Bilirubin,Urine NEGATIVE (Negative); Color,Urine DK. YELLOW; Culture Indicated,Urine No; Glucose,Urine (UA) NEGATIVE (Negative); Ketones,Urine TRACE mg/dL (Negative); Leukocyte Esterase,Urine NEGATIVE /uL (Negative); Nitrate,Urine NEGATIVE (Negative); Protein,Urine NEGATIVE (Negative); Specific Gravity,Urine 1.025 (1.000-1.035); Urine Blood NEGATIVE ery/mcL (Negative); Urobilinogen,Urine Normal
--- NOTE | 2022-01-17 13:02 | Cat Scan Report ---
CLINICAL INFORMATION: Chest pain COMPARISON: Chest CT 08/03/2013 TECHNIQUE: 0.625 mm axial slices were obtained from the lung apices through the bases without intravenous contrast. 2.5 mm Sagittal, coronal and axial reformatted images were processed and reviewed at bone, lung and soft tissue windows. 7 mm axial MIP images were also reconstructed to optimize pulmonary nodule detection.The exam was performed using radiation dose optimization techniques including, but not limited to, automated exposure control, adjustment of the mA and/or kV according to patient size and use of iterative reconstruction technique. FINDINGS: Pulmonary parenchymal windows show elevated lung volumes wall thickening/mild dilatation of bronchi compatible chronic bronchitis. Moderate cartilage calcification in the trachea and the main bronchi was also seen on the previous exam. There is an 11 mm pleural-based nodule in the posterior left lung apex image 24 which was not seen on the previous exam. It is almost certainly due to postinflammatory fibrosis rather than neoplasia.. The remaining lungs are clear. There are no effusions. Mediastinal windows show the heart is mildly enlarged with scattered calcific plaque in the coronary arteries. There is also calcification in aortic valve. The noncontrast thoracic aorta and pulmonary arteries are normal diameter. Esophagus is grossly normal. There is no adenopathy in the mediastinal, hilar or axillary region. Thyroid is unremarkable. Bone windows show mild chronic T10 minimal chronic T12 and moderate chronic L1 compression fractures. No soft tissue abnormalities. Images of the superior abdomen show a 11 mm cyst in the posterior mid right kidney. IMPRESSION: Chronic bronchitis. 11 mm pleural-based nodular density posterior left lung apex. This was not seen on the remote CT eight years prior. It is almost certainly fibrotic. Interpreted and Authenticated by: Howie Gaona 01/17/22
[2022-01-17] MEDS ORDERED: ACETAMINOPHEN 325 MG TABLET PO PRN (13:04)
[2022-01-17] MEDS ORDERED: SENNOSIDES 1 TABLET PO PRN (13:04)
[2022-01-17] MEDS ORDERED: LACTULOSE 20 GM/30 ML ORAL.SOL PO PRN (13:04)
[2022-01-17] MEDS ORDERED: ONDANSETRON 4 MG/2 ML VIAL IV PRN (13:04)
[2022-01-17] MEDS ORDERED: WARFARIN 7.5 MG TABLET PO ONE (14:00)
[2022-01-17 14:39] LABS: ALT/SGPT 29 U/L (<40); AST/SGOT 34 U/L (<32); Albumin 3.1 gm/dL (3.2-5.2); Albumin/Globulin Ratio 1.4 (1.0-2.3); Alkaline Phosphatase 68 U/L (39-117); Bilirubin,Direct 0.4 mg/dL (<0.3); Bilirubin,Total 1.2 mg/dL (0.1-1.0); Blood Urea Nitrogen 11 mg/dL (8-23); Calcium 8.6 mg/dL (8.6-10.4); Carbon Dioxide 24 mmol/L (22-30); Chloride 104 mmol/L (96-108); Globulin 2.2 gm/dL (2.2-3.7); Glomerular Filtration Rate 81; Glucose 130 mg/dL (70-105); Lactate Dehydrogenase 193 U/L (135-225); Phosphorous 2.9 mg/dL (2.5-4.5); Thyroid Stimulating Hormone 2.43 uIU/mL (0.27-5.01); Triglycerides 64 mg/dL (<150); Uric Acid 4.1 mg/dL (2.5-8.0)
[2022-01-17] MEDS: 0.9 % SODIUM CHLORIDE 10 ML SYRINGE IV SCH ×2 (15:28→23:34)
[2022-01-17] MEDS ORDERED: AMIODARONE 150 MG in DEXTROSE 5% IN WATER 50 ML IV ONE (17:57)
[2022-01-17] MEDS ORDERED: AMIODARONE 360 MG in PREMIX 1 BAG IV SCH ×2 (18:00→23:55)
--- NOTE | 2022-01-17 18:17 | EKG ---
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
[2022-01-17] MEDS: 0.9 % SODIUM CHLORIDE 1,000 ML IV SCH (18:55)
[2022-01-17] MEDS ORDERED: AMIODARONE 360 MG/200 ML BAG IV ONE (18:58)
[2022-01-17] MEDS ORDERED: AMIODARONE 150 MG/3 ML VIAL IV ONE (18:58)
[2022-01-17] MEDS ORDERED: METOPROLOL TARTRATE 5 MG/5 ML VIAL IV PRN (19:28)
[2022-01-17] MEDS ORDERED: METOPROLOL SUCCINATE 25 MG TAB.XL.24H PO SCH (19:30)
[2022-01-17] MEDS: DOCUSATE SODIUM 100 MG CAPSULE PO SCH (20:43)
[2022-01-17] MEDS: diphenhydrAMINE 50 MG/ML VIAL IV PRN (23:33)
[2022-01-18] MEDS: diphenhydrAMINE 50 MG/ML VIAL IV PRN (05:12)
[2022-01-18] MEDS: 0.9 % SODIUM CHLORIDE 10 ML SYRINGE IV SCH ×2 (05:13→11:59)
[2022-01-18 06:51] LABS: Hematocrit 46.1 % (34.1-44.9); Hemoglobin 14.9 g/dL (11.2-15.7); Mean Corpuscular HGB Conc 32.3 g/dL (31.0-36.0); Mean Platelet Volume 11.9 fL (8.8-12.5); Platelet Count 171 K/mcL (140-440); RBC 5.18 M/mcL (3.59-5.38); Red Cell Distribution Width 13.7 % (11.5-14.5); WBC 13.2 K/mcL (4.5-11.0)
[2022-01-18 07:25] LABS: ALT/SGPT 21 U/L (<40); AST/SGOT 19 U/L (<32); Albumin 2.9 gm/dL (3.2-5.2); Albumin/Globulin Ratio 1.5 (1.0-2.3); Alkaline Phosphatase 63 U/L (39-117); Bilirubin,Direct 0.3 mg/dL (<0.3); Bilirubin,Total 0.9 mg/dL (0.1-1.0); Blood Urea Nitrogen 11 mg/dL (8-23); Calcium 8.1 mg/dL (8.6-10.4); Carbon Dioxide 24 mmol/L (22-30); Chloride 107 mmol/L (96-108); Globulin 1.9 gm/dL (2.2-3.7); Glomerular Filtration Rate 81; Glucose 129 mg/dL (70-105); Lactate Dehydrogenase 215 U/L (135-225); Phosphorous 2.8 mg/dL (2.5-4.5); Triglycerides 78 mg/dL (<150); Uric Acid 4.2 mg/dL (2.5-8.0)
[2022-01-18 07:28] LABS: INR 4.3 (0.9-1.1); Prothrombin Time 45.2 sec (11.9-14.5)
[2022-01-18] MEDS: 0.9 % SODIUM CHLORIDE 1,000 ML IV SCH (07:55)
[2022-01-18] MEDS: DOCUSATE SODIUM 100 MG CAPSULE PO SCH (08:06)
[2022-01-18 08:59] LABS: Band Neutrophils % 3 % (0-10); Eosinophils % (Manual) 2 % (0-7); Lymphocytes % 7 % (15-49); Monocytes % (Manual) 4 % (1-12); Platelet Estimate NORMAL (Normal); RBC Morphology NORMAL (Normal); Segmented Neutrophils % 84 % (38-78)
[2022-01-18] MEDS ORDERED: METOPROLOL SUCCINATE 25 MG TAB.XL.24H PO SCH (09:00)
[2022-01-18] MEDS ORDERED: methylPREDNISolone SOD SUCC 125 MG/2 ML VIAL IV ONE (11:39)
[2022-01-18] MEDS ORDERED: METOPROLOL SUCCINATE 25 MG TAB.XL.24H PO ONE (11:40)
--- NOTE | 2022-01-18 11:51 | Discharge Summary ---
Discharge Provider Provider IMPORTANT FOLLOW-UP INFORMATION FOR PCP: Patient information: Note initiated : 01/18/22 at 11:47 am Service Date, if different from initiated Date: [] Patient: Cheryl Robison 81 y/o F admitted on 01/17/22 for chest pain. Chief Complaint: [] Date of admission: 01/17/22 12:36 Discharge date: 01/18/22 Primary care physician: Howie Newman DO Consults: 01/17/22 Consult to Physician [CONS] Stat Comment: Consulting Provider: Brandon Burgos Reason For Exam: Physician to Consult COURSE Hospital Course Hospital course: Ms. Robison is a 81 year old female with a history of atrial fibrillation on Coumadin, GERD, osteoporosis, multiple allergies who presented to the ED for a diffuse pruritic rash and chest discomfort. In the emergency department the patient was found to have leukocytosis however was afebrile. Her blood pressure was low however the patient was asymptomatic from hypotension. She says that her blood pressure usually runs low and she also takes rate controlling agents for atrial fibrillation. Work-up in the ED included a chest x-ray which did not show any infiltrates suggestive of pneumonia. There was cardiomegaly noted on the chest x-ray but no pulmonary vascular congestion. The patient had an EKG which showed a chronic left bundle branch block, troponin was normal. NT proBNP was notably elevated. The patient was given IV fluid, antibiotics for possible pneumonia, and hospital medicine was consulted for admission. The patient says that her symptoms began yesterday evening and consist of a diffuse rash, chest discomfort, crampy abdominal discomfort and diarrhea. The patient says she does have chronic diarrhea at baseline. Upon examination, the most prominent finding on examination is a diffuse pruritic rash which the patient says began yesterday. Patient says that she is experienced 3 prior episodes of the same kind of rash which are unexplained so far. The patient denies recent medication changes except for medication that starts with a "c" which she does not remember, she thinks she takes it for diarrhea. The patient is hypotensive with systolic blood pressures in the 70s however appears to be asymptomatic. She says her systolic blood pressure usually runs low in the 90s. The patient has a urinalysis pending, blood cultures pending, she also has a Lazaro catheter in the emergency department. 01/18 Work-up positive for rhinovirus, [place] PCR negative, urinalysis negative, CT chest did not reveal any infiltrates, positive for chronic bronchitis. The patient was bradycardic overnight, reduced Toprol to 12.5 mg daily. Later in the afternoon patient's heart rate was in the low 100s so increased Toprol to 25 mg daily. Patient wishes to discharge home, rash looks about the same as yesterday. Patient says that her rashes have responded in the past to systemic steroids. 1 dose of IV Solu-Medrol given, Medrol Dosepak prescribed at discharge for rash. Transthoracic echocardiogram report pending at discharge. Discharged home with PCP follow-up. Physical exam Head: Atraumatic, normal inspection. Eyes: normal appearance, no scleral icterus. Neck: full ROM Respiratory: no respiratory distress. Cardiovascular: normal rate and rhythm, S1, S2. GI/Abdominal: soft, nontender, no guarding. Extremities: full range of motion, nontender. Neurological: CN II-XII intact, intact motor, intact sensation. Psychiatric: normal mood. Skin: Diffuse rash Discharge diagnosis: Systemic inflammatory response syndrome possibly secondary to rhinovirus Secondary discharge diagnosis: Pruritic rash, possibly secondary to rhinovirus Time Spent with Patient Time attestation: Total time spent providing and/or coordinating discharge services: Time spent: Less than 30 minutes EXAM Constitutional Vitals: Temp Pulse Resp BP Pulse Ox O2 Del Method O2 Flow Rate 100 F H 68 24 H 94/70 98 2 01/18/22 08:01 01/18/22 09:01 01/18/22 10:01 01/18/22 10:01 01/18/22 09:01 01/18/22 10:01 01/18/22 08:01 Discharge Data Data Completed and Pending Labs on day of discharge: Labs from last 24 hours 01/18/22 01/18/22 01/18/22 05:17 05:17 05:17 WBC 13.2 H RBC 5.18 Hgb 14.9 Hct 46.1 H MCV 89.0 MCH 28.8 MCHC 32.3 RDW 13.7 Plt Count 171 MPV 11.9 Seg Neutrophils % 84 H Band Neutrophils % 3 Lymphocytes % 7 L Monocytes % (Manual) 4 Eosinophils % (Manual) 2 Platelet Estimate Normal RBC Morphology Normal ESR PT 45.2 H INR 4.3 H Sodium 140 Potassium 3.8 Chloride 107 Carbon Dioxide 24 Anion Gap 9.0 BUN 11 Creatinine 0.7 GFR Calculation 81 Glucose 129 H Uric Acid 4.2 Calcium 8.1 L Phosphorus 2.8 Magnesium 1.6 Total Bilirubin 0.9 Direct Bilirubin 0.3 H GGT 26 AST 19 ALT 21 Alkaline Phosphatase 63 Lactate Dehydrogenase 215 Troponin T C-Reactive Protein Total Protein 4.8 L Albumin 2.9 L Globulin 1.9 L Albumin/Globulin Ratio 1.5 Triglycerides 78 TSH Random Cortisol Urine Color Urine Appearance Urine pH Ur Specific [place] Urine Protein Urine Glucose (UA) Urine Ketones Urine Occult Blood Urine Nitrate Urine Bilirubin Urine Urobilinogen Ur Leukocyte Esterase Ur Culture Indicated? 01/17/22 01/17/22 01/17/22 13:25 13:25 12:03 WBC RBC Hgb Hct MCV MCH MCHC RDW Plt Count MPV Seg Neutrophils % Band Neutrophils % Lymphocytes % Monocytes % (Manual) Eosinophils % (Manual) Platelet Estimate RBC Morphology ESR PT INR Sodium 138 Potassium 3.7 Chloride 104 Carbon Dioxide 24 Anion Gap 10.0 BUN 11 Creatinine 0.7 GFR Calculation 81 Glucose 130 H Uric Acid 4.1 Calcium 8.6 Phosphorus 2.9 Magnesium 1.6 Total Bilirubin 1.2 H Direct Bilirubin 0.4 H GGT 27 AST 34 H ALT 29 Alkaline Phosphatase 68 Lactate Dehydrogenase 193 Troponin T < 0.01 C-Reactive Protein Total Protein 5.3 L Albumin 3.1 L Globulin 2.2 Albumin/Globulin Ratio 1.4 Triglycerides 64 TSH 2.43 Random Cortisol 15.0 Urine Color Urine Appearance Urine pH Ur Specific [place] Urine Protein Urine Glucose (UA) Urine Ketones Urine Occult Blood Urine Nitrate Urine Bilirubin Urine Urobilinogen Ur Leukocyte Esterase Ur Culture Indicated? 01/17/22 01/17/22 01/17/22 11:14 06:48 06:48 WBC RBC Hgb Hct MCV MCH MCHC RDW Plt Count MPV Seg Neutrophils % Band Neutrophils % Lymphocytes % Monocytes % (Manual) Eosinophils % (Manual) Platelet Estimate RBC Morphology ESR 17 PT INR Sodium Potassium Chloride Carbon Dioxide Anion Gap BUN Creatinine GFR Calculation Glucose Uric Acid Calcium Phosphorus Magnesium Total Bilirubin Direct Bilirubin GGT AST ALT Alkaline Phosphatase Lactate Dehydrogenase Troponin T C-Reactive Protein 6.20 H Total Protein Albumin Globulin Albumin/Globulin Ratio Triglycerides TSH Random Cortisol Urine Color Dk. yellow Urine Appearance Clear Urine pH 6.0 Ur Specific [place] 1.025 Urine Protein Negative Urine Glucose (UA) Negative Urine Ketones Trace A Urine Occult Blood Negative Urine Nitrate Negative Urine Bilirubin Negative Urine Urobilinogen Normal Ur Leukocyte Esterase Negative Ur Culture Indicated? No Preliminary micro results at discharge 01/17/22 08:29 Blood Culture - Preliminary Blood 01/17/22 08:22 Blood Culture - Preliminary Blood Discharge Plan Patient/Caregiver Discharge Instructions Activity: increase activity as tolerated Diet: Regular Diet Prescriptions: New metoprolol succinate [Toprol XL] 25 mg tablet extended release 24 hr 25 mg PO QDAY Qty: 60 4RF methylprednisolone [Medrol (Daryn)] 4 mg tablets,dose pack 4 mg PO QDAY Qty: 21 0RF Rx Instructions: Take methylprednisolone once a day as follows: 24 mg on day 1, 20 mg on day 2, 16 mg on day 3, 12 mg on day 4, 8 mg on day 5, 4 mg on day 6 then discontinue. Continued furosemide 20 mg tablet 20 mg PO QDAY PRN (Reason: edema) Qty: 90 0RF Prolia 60 mg/mL syringe 60 mg subcut [id number] Qty: 1 0RF tramadol 50 mg tablet 50 mg PO BID PRN (Reason: low back pain) Qty: 14 0RF cetirizine 10 mg tablet 20 mg PO BID Qty: 120 0RF omeprazole 20 mg capsule,delayed release(DR/EC) 20 mg PO QAM Qty: 90 1RF multivitamin tablet 1 tab PO QDAY potassium chloride 10 mEq tablet extended release 10 meq PO QDAY PRN (Reason: edema) Qty: 90 0RF warfarin 7.5 mg tablet 7.5 mg PO .COMPLEX Qty: 135 3RF Protocol: Dose Management Condition: Friday Dose/Route: 7.5 mg Instruction: 1 x 7.5 mg tablet Condition: Friday Dose/Route: 7.5 mg Instruction: 1 x 7.5 mg tablet Condition: Friday Dose/Route: 7.5 mg Instruction: 1 x 7.5 mg tablet Condition: Friday Dose/Route: 7.5 mg Instruction: 1 x 7.5 mg tablet Condition: Dose/Route: 7.5 mg Instruction: 1 x 7.5 mg tablet Condition: Friday Dose/Route: 7.5 mg Instruction: 1 x 7.5 mg tablet Condition: Friday Dose/Route: 3.75 mg Instruction: 0.5 x 7.5 mg tablets Protocol Text: Adjustment Start Date: Friday12/04/21 INR Value: 2.0 INR Date: 12/04/21 Recheck Date: 12/11/21 Rx Instructions: 7.5 mg PO 6 days/week, 3.75mg (0.5 tablet) on Friday Alive Hair, Skin and Nails 1,250 mcg-50 mg -67.5 mg-15 mg Tablet,Chewable 1 tab PO QDAY Discontinued metoprolol succinate 25 mg tablet extended release 24 hr 50 mg PO QDAY Qty: 1 0RF Follow Up Plan Follow up with: Howie Newman DO [Primary Care Provider] - Patient Disposition: Home, Self-Care Prognosis: Fair Overall status at discharge: patient is progressing back to baseline Discharge Orders: Discharge Order (Routine); Ordered 01/18/22 Ordered By: Brandon PAGE VTE Deep Vein Thrombosis/Pulmonary Embolism Present on Admission: No
== END 2022-01-18 12:23 | disposition home or self-care (01) | DRG 606 ==
LOC: ED 06:22 → ICU 12:36
PROVIDERS: ADMIT Internal Medicine; ATTEND Internal Medicine